=== PATIENT | female | born 1980 | race Caucasian/White ===

== ENCOUNTER 2018-04-19 17:14 | Emergency (ER) | payer MEDICARE ==
[2018-04-19 18:20] VITALS: BP 148/73
--- NOTE | 2018-04-19 18:41 | UC ---
Lower Extremity/Ankle HPI - HPI Summary HPI Summary: right great toe pain x 16 days stub her right big toe, + pain and swelling, redness, discharge was seen at ED , DX with infection , was place on Clinda finished 10 days of clinda, the toe still very painful, red and swollen - History of Current Complaint Chief Complaint: UCLowerExtremity Stated Complaint: RT FOOT BIG TOE COMPLAINT Time Seen by Provider: 04/19/18 18:06 Hx Obtained From: Patient Hx Last Menstrual Period: ablation Onset/Duration: Sudden Onset, Lasting Days - 16, Still Present Severity Initially: Moderate Severity Currently: Moderate Pain Intensity: 6 Aggravating Factor(s): Standing, Ambulation Alleviating Factor(s): Rest, Elevation Able to Bear Weight: Yes - Allergies/Home Medications Allergies/Adverse Reactions: Allergies Allergy/AdvReac Type Severity Reaction Status Date / Time bupropion [From Wellbutrin] Allergy See Comment Verified 04/19/18 18:02 haloperidol [From Haldol] Allergy Anaphylatic Verified 04/19/18 18:02 Shock ketorolac [From Toradol] Allergy Vomiting Verified 04/19/18 18:02 NSAIDS (Non-Steroidal Allergy Vomiting Verified 04/19/18 18:02 Anti-Inflamma bcp Allergy Shakes Uncoded 04/19/18 18:02 Home Medications: Home Medications Acetaminophen [Tylenol Extra Strength] 1,000 mg PO Q4H PRN 04/19/18 [History Confirmed 04/19/18] Aspirin EC TAB* [Ecotrin EC Low Dose 81 MG*] 81 mg PO DAILY 04/19/18 [History Confirmed 04/19/18] Benztropine TAB* [Cogentin TAB*] 1 mg PO BID 04/19/18 [History Confirmed ] Furosemide TAB* [Lasix TAB*] 20 mg PO BID 04/19/18 [History Confirmed 04/19/18] Gabapentin [Neurontin] 300 mg PO TID 04/19/18 [History Confirmed 04/19/18] OLANZapine [Zyprexa] 20 mg PO BEDTIME 04/19/18 [History Confirmed 04/19/18] Oxybutynin Chloride [Ditropan Xl] 10 mg PO DAILY 04/19/18 [History Confirmed ] Oxycodone HCl 5 mg PO BID 04/19/18 [History Confirmed 04/19/18] Potassium Chlor TAB* [Klor Con ER TAB*] 20 meq PO DAILY 04/19/18 [History Confirmed 04/19/18] Vit B12/Levomefolate/Vit B6/B2 [Cerefolin] 1 tab PO DAILY 04/19/18 [History Confirmed 04/19/18] chlorproMAZINE TAB* [Thorazine TAB*] 100 mg PO TID 04/19/18 [History Confirmed 04/19/18] hydrOXYzine pamoate [Vistaril] 100 mg PO TID 04/19/18 [History Confirmed ] traZODone TAB* [Desyrel TAB*] 50 mg PO BEDTIME 04/19/18 [History Confirmed 04/19] PMH/Surg Hx/FS Hx/Imm Hx - Additional Past Medical History Additional PMH: neurogenic bladder herniated disks b/l knee crepetis left breast mass--benign hx of vertigo - Surgical History Surgical History: Yes Surgery Procedure, Year, and Place: left breast sx x 2. tendon sx finger 5L. hernia repair--2009. ablation x 3 - Family History Known Family History: Negative: Blood Disorder - Social History Alcohol Use: None Substance Use Type: None Smoking Status (MU): Current Every Day Smoker Type: Cigarettes Amount Used/How Often: 1/2 -1 ppd Length of Time of Smoking/Using Tobacco: 30 yrs Review of Systems Constitutional: Negative Skin: Negative Eyes: Negative ENT: Negative Respiratory: Negative Cardiovascular: Negative Is Patient Immunocompromised?: No All Other Systems Reviewed And Are Negative: Yes Physical Exam Triage Information Reviewed: Yes Appearance: Well-Appearing, No Pain Distress, Well-Nourished Vital Signs: Initial Vital Signs Temp 99.3 F 04/19/18 18:11 Pulse 117 04/19/18 18:11 Resp 20 04/19/18 18:11 BP 148/73 04/19/18 18:11 Pulse Ox 98 04/19/18 18:11 Vital Signs Reviewed: Yes Eyes: Positive: Conjunctiva Clear ENT: Positive: Normal ENT inspection, Hearing grossly normal, Pharynx normal Respiratory: Positive: Chest non-tender, Lungs clear, Normal breath sounds Cardiovascular: Positive: RRR, No Murmur, Pulses Normal Skin: Positive: Other - right great toe: + erythema, swelling, tender to touch Lower Extremity Course/Dx - Differential Dx/Diagnosis Provider Diagnoses: cellulitis right great toe Discharge - Sign-Out/Discharge Documenting (check all that apply): Patient Departure - Discharge Plan Condition: Stable Disposition: HOME Prescriptions: Acetaminophen with Codeine [Acetaminophen/Codeine Darya 300-30 mg] 1 tab PO Q8H PRN #15 tab MDD 3 PRN Reason: Pain Cephalexin CAP* [Keflex CAP*] 500 mg PO TID #30 cap Patient Education Materials: Cellulitis (DC) Referrals: Non Staff,Doctor [Primary Care Provider] - 7 Days - Billing Disposition and Condition Condition: STABLE Disposition: Home
== END 2018-04-19 18:41 | disposition home or self-care (01) ==
LOC: UCCORT 17:14
DX: L03.031 Cellulitis of right toe (principal); Z88.6 Allergy status to analgesic agent
CPT/HCPCS: 99202; G0463